=== PATIENT | male | born 1985 | race African-American/Black ===

== ENCOUNTER 2021-10-31 23:15 | Emergency (ER) | payer MEDICAID ==
[~2021-10-31] VITALS: Ht 188 cm; Wt 72.0 kg
[2021-10-31 23:48] VITALS: BP 123/81
[2021-11-01] MEDS ORDERED: LIDOCAINE HCL/PF 1% 10 MG/ML 5ML VIAL INFIL ONE (06:00)
[2021-11-01] MEDS ORDERED: CEPH500C2 MT (06:51)
== END 2021-11-01 07:11 | disposition home or self-care (01) ==
LOC: ER 23:15
DX: S61.411A Laceration without foreign body of right hand, initial encounter (principal); W26.0XXA Contact with knife, initial encounter; Y93.89 Activity, other specified; Y92.89 Other specified places as the place of occurrence of the external cause; Y99.8 Other external cause status
CPT/HCPCS: 12002; 99283; J3490; 99282

== ENCOUNTER 2021-11-03 11:37 | Emergency (ER) | payer MEDICAID ==
[~2021-11-03] VITALS: Ht 188 cm; Wt 73.0 kg
[~2021-11-03 11:37] MED LIST: CEPH500C2 MT
[2021-11-03 11:51] VITALS: BP 107/56
== END 2021-11-03 12:05 | disposition home or self-care (01) ==
LOC: ER 11:37
DX: Z48.00 Encounter for change or removal of nonsurgical wound dressing (principal); Z85.9 Personal history of malignant neoplasm, unspecified
CPT/HCPCS: 99281